=== PATIENT | male | born 1995 | race African-American/Black ===

== ENCOUNTER 2016-11-30 15:44 | Emergency (ER) | payer OTHER ==
[2016-11-30 15:49] VITALS: BP 126/67; PULSE 85; RESP 20; TEMP 98.1
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
== END 2016-11-30 16:16 | disposition home or self-care (01) ==
LOC: EC 15:44
DX: T22.212A Burn of second degree of left forearm, initial encounter (principal); X08.8XXA Exposure to other specified smoke, fire and flames, initial encounter
CPT/HCPCS: 16020; 99283

== ENCOUNTER 2017-02-15 18:44 | Emergency (ER) | payer OTHER ==
[2017-02-15 18:52] VITALS: RESP 18
[2017-02-15] MEDS ORDERED: MORPHINE SULFATE 4 MG/ML SYRINGE IVP STA (19:09)
[2017-02-15] MEDS: LACTATED RINGERS 1,000 ML IV SCH ×2 (19:10→19:33)
[2017-02-15] MEDS ORDERED: SILVER sulfADIAZINE Cream 400 GM 1 APPLIC APPLIC TOPICAL ONE (19:30)
[2017-02-15 19:46] LABS: Basophils % (A) 1 %; CH 35.7; CHCM 34.3; Eosinophils # (A) 0.2 k/uL (0-0.7); Eosinophils % (A) 3 %; HCT 43.4 % (39.0-53.0); HDW 2.54; Luc # (Auto) 0.12; Luc % (Auto) 3; Lymphocytes # (A) 1.7 k/uL (1.0-4.8); Lymphocytes % (A) 37 %; MCH 36.1 pg (25.0-35.0); MCHC 34.6 g/dL (31.0-37.0); MCV 104.4 fL (80.0-100.0); Macrocytosis Slight; Mean Platelet Volume 7.5; Monocytes # (A) 0.3 k/uL (0-1.0); Monocytes % (A) 6 %; Neutrophils # (A) 2.4 k/uL (1.3-7.7); Neutrophils % (A) 50 %; RBC 4.15 m/uL (4.30-5.90); RDW 12.1 % (11.5-15.5); WBC 4.7 k/uL (3.8-10.6); WBC (Perox) 4.55
[2017-02-15 20:10] LABS: Anion Gap 13 mmol/L; Blood Urea Nitrogen 21 mg/dL (9-20); Calcium 9.4 mg/dL (8.4-10.2); Carbon Dioxide 24 mmol/L (22-30); Chloride 105 mmol/L (98-107); Glucose 109 mg/dL (74-99); Non-African American GFR(MDRD) >60 (>60 ml/min/1.73 sqM); Potassium 4.2 mmol/L (3.5-5.1); Sodium 142 mmol/L (137-145)
[2017-02-15] MEDS ORDERED: DIPH,PERTUS(ACELL)TETVAC-LF 0.5 ML VIAL IM ONE (20:49)
[2017-02-15] MEDS ORDERED: MORPHINE SULFATE 10 MG/ML SYRINGE IVP STA (20:52)
[2017-02-15] MEDS ORDERED: HYDROcodone/APAP 5-325MG 1 EACH TAB PO STA (22:04)
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
[2017-02-15 22:21] VITALS: BP 137/67; PULSE 80; TEMP 97.9
== END 2017-02-15 22:22 | disposition home or self-care (01) ==
LOC: EC 18:44
DX: T21.32XA Burn of third degree of abdominal wall, initial encounter (principal); T22.292A Burn of second degree of multiple sites of left shoulder and upper limb, except wrist and hand, initial encounter; T31.0 Burns involving less than 10% of body surface; Z23 Encounter for immunization; X10.2XXA Contact with fats and cooking oils, initial encounter; Y93.G3 Activity, cooking and baking; Y99.0 Civilian activity done for income or pay; Y92.511 Restaurant or cafe as the place of occurrence of the external cause
CPT/HCPCS: 99283; 16020; 96374; 96376; 96361 ×3; 90471; 36415; 80048; 85025; 90715; J2270 ×2

== ENCOUNTER → 2018-08-19 | Outpatient (CLI) | payer OTHER ==
--- NOTE | 2018-08-20 09:15 | ECHOF ---
Referral Reason:CHEST PAIN, ABN EKG MEASUREMENTS -------- HEIGHT: 167.6 cm WEIGHT: 74.8 kg BP: RVIDd: 2.3 cm (< 3.3) IVSd: 0.8 cm (0.6 - 1.1) LVIDd: 4.8 cm (3.9 - 5.3) LVPWd: 1.0 cm (0.6 - 1.1) IVSs: 1.2 cm LVIDs: 3.1 cm LVPWs: 1.7 cm LAESV Index (A-L): 14.47 ml/m Ao Diam: 2.9 cm (2.0 - 3.7) AV Cusp: 2.5 cm (1.5 - 2.6) LA Diam: 2.8 cm (2.7 - 3.8) MV EXCURSION: 21.866 mm (> 18.000) MV EF SLOPE: 84 mm/s (70 - 150) EPSS: 0.6 cm MV E Tyson: 0.81 m/s MV DecT: 172 ms MV A Tyson: 0.66 m/s MV E/A Ratio: 1.22 RAP: 5.00 mmHg RVSP: 8.67 mmHg FINDINGS -------- Sinus rhythm. This was a technically good study. The left ventricular size is normal. Left ventricular wall thickness is normal. Overall left vent ricular systolic function is normal with, an EF between 55 - 60 %. The right ventricle is normal in size and function. The left atrium is normal in size. The right atrium is normal in size. The aortic valve is trileaflet and appears structurally normal. There is trace mitral regurgitation. Trace tricuspid regurgitation present. The right ventricular systolic pressure, as measured by Dopp ler, is 8.67mmHg. Pulmonic valve appears structurally normal. The aortic root size is normal. Normal inferior vena cava with normal inspiratory collapse consistent with estimated right atrial pre ssure of 5 mmHg. The pericardium is normal. CONCLUSIONS -------- 1. Sinus rhythm. 2. This was a technically good study. 3. The left ventricular size is normal. 4. Left ventricular wall thickness is normal. 5. Overall left ventricular systolic function is normal with, an EF between 55 - 60 %. 6. The right ventricle is normal in size and function. 7. The left atrium is normal in size. 8. The right atrium is normal in size. 9. The aortic valve is trileaflet and appears structurally normal. 10. There is trace mitral regurgitation. 11. Trace tricuspid regurgitation present. 12. The right ventricular systolic pressure, as measured by Doppler, is 8.67mmHg. 13. Pulmonic valve appears structurally normal. 14. The aortic root size is normal. 15. Normal inferior vena cava with normal inspiratory collapse consistent with estimated right atrial pressure of 5 mmHg. 16. The pericardium is normal. ADJUNCT HISTORY INSTRUCTOR: Merna Woods RDCS
--- NOTE | 2018-08-20 10:42 | P.STRESS ---
- Stress Test Note Stress Test Results/Findings: Exam Performed: stress test Exam Date: 08/19/18 Reason for Exam: CHEST PAIN Height: 5 ft 6 in Weight: 73.936 kg Protocol: ANDERSON Stage: 4 Duration of Exercise: 9:35 Resting Heart Rate: 76 Resting Blood Pressure: 118/61 Maximum Achieved Heart Rate: 171 Maximum Achieved Blood Pressure: 177/63 85% PMHR: 167 100% PMHR: 196 METS: 11.1 Technologist Comment: Stress Test Results/Findings: Patient complained of exertional chest discomfort and dizziness with straining especially when he was lifting heavy objects and walking up stairs Abnormal baseline ECG with T-wave inversions V4-V6 and in the inferior leads with a 0.[address] depression Baseline heart rate 76 beats a minute Blood pressure 118/61 mmHg Patient exercised on a Anderson protocol for 9 minutes 35 seconds. He complained of chest pain. There was no worsening of ST segment abnormalities although baseline artifact was noted. At peak exercise there was normalization of ST-T segments with a quick return to the baseline ECG within 30-60 seconds into recovery No arrhythmias noted Impression Good exercise capacity, associated chest discomfort Baseline abnormality in the ECG with a 0.[address] depression with T-wave inversions, deep V4-V6 and the inferior leads in this -[place] 23-year- old male No clear-cut ST segment abnormalities at peak exercise
--- NOTE | 2018-08-21 15:03 | EST ---
Stress Test Results/Findings: Exam Performed: stress test Exam Date: 08/19/18 Reason for Exam: CHEST PAIN Height: 5 ft 6 in Weight: 73.936 kg Protocol: ANDERSON Stage: 4 Duration of Exercise: 9:35 Resting Heart Rate: 76 Resting Blood Pressure: 118/61 Maximum Achieved Heart Rate: 171 Maximum Achieved Blood Pressure: 177/63 85% PMHR: 167 100% PMHR: 196 METS: 11.1 Technologist Comment: Stress Test Results/Findings: Patient complained of exertional chest discomfort and dizziness with straining especially when he was lifting heavy objects and walking up stairs Abnormal baseline ECG with T-wave inversions V4-V6 and in the inferior leads with a 0.[address] depression Baseline heart rate 76 beats a minute Blood pressure 118/61 mmHg Patient exercised on a Anderson protocol for 9 minutes 35 seconds. He complained of chest pain. There was no worsening of ST segment abnormalities although baseline artifact was noted. At peak exercise there was normalization of ST-T segments with a quick return to the baseline ECG within 30-60 seconds into recovery No arrhythmias noted Impression Good exercise capacity, associated chest discomfort Baseline abnormality in the ECG with a 0.[address] depression with T-wave inversions, deep V4-V6 and the inferior leads in this -[place] 23-year- old male No clear-cut ST segment abnormalities at peak exercise MTDD
== END | disposition home or self-care (01) ==
LOC: RADNMMAIN 10:42
PROVIDERS: ATTEND Family Medicine
DX: R07.9 Chest pain, unspecified (principal)
CPT/HCPCS: 93017; 93306